=== PATIENT | male | born 1925 ===

== ENCOUNTER 2016-04-25 23:16 | Emergency (ER) | payer OTHER ==
[~2016-04-25] VITALS: Ht 182.9 cm; Wt 83.9 kg
--- NOTE | 2016-04-25 23:35 | ED CRITICAL CARE ---
History of Present Illness General Chief Complaint: Cardiopulmonary Resuscitation Stated Complaint: CPR Source: EMS Exam Limitations: clinical condition Vital Signs & Intake/Output Vital Signs & Intake/Output Vital Signs Date Time Temp Pulse Resp B/P Pulse O2 O2 Flow FiO2 Ox Delivery Rate 04/25 2328 39 ED Intake and Output 04/26 0000 04/25 1200 Intake Total 500 Output Total Balance 500 Intake, IV 500 Patient 185 lb Weight Triage Nurses Notes Reviewed? yes HPI: EMS was contacted secondary to shortness of breath that started earlier during the day. Upon EMS arrival patient sounded very wet and congested. As the patient was being brought out to the ambulance he went into V. fib arrest. Patient was defibrillated at 200 J with conversion into asystole. CPR was initiated and the patient was intubated. Patient received a total of 5 doses of epinephrine. Patient was also given 300 mg of amiodarone. After the first 2 doses of epinephrine patient transiently got pulses back for approximately 10-15 seconds before he bradyed down and 1 asystole again. There is no return of pulses after the third through fifth rounds of epinephrine. Past History Travel History Traveled to [place] past 21 day No Medical History Any Pertinent Medical History? see below for history Cardiovascular: AFIB, hypertension Blood Disorders: CLL Surgical History Surgical History: non-contributory Psychosocial History Tobacco Use: Cognitive Impairment Family History Hx Contributory? No Review of Systems Review of Systems Constitutional: Reports: see HPI. Respiratory: Reports: see HPI. Physical Exam Physical Exam General Appearance: intubated Head: atraumatic Eyes: Bilateral: other (FIXED). Neck: NO JVD Respiratory: LUNGS RHONCHOURUS WITH BVM Neurologic/Psych: UNRESPONSIVE Core Measures ACS in differential dx? Yes ASA ordered for poss ACS? CARDIAC ARREST CVA/TIA Diagnosis: No Severe Sepsis Present: No Septic Shock Present: No Progress Differential Diagnoses I considered the following diagnoses in my evaluation of the patient: [AMI, ELECTROLYTE ABNORMALITY, PE] Plan of Care: PT PRONOUCED Initial ED EKG: none Rhythm Strip: ASYSTOLE Comments: Upon arrival to the emergency department endotracheal tube placement was confirmed with breath sounds. Patient remained asystolic. CPR was continued. 1 mg of epinephrine was administered. Approximately 1 minute after administration of epinephrine patient went into a wide complex rhythm. Patient remained pulseless. A bedside echocardiogram showed no movement of his anterior wall and minimal movement of the inferior wall. The EF was less than 10%. After approximately 15 seconds patient bradyed down and went asystolic once again. Patient was pronounced at 2328. Departure Departure Disposition: Condition: Stable Clinical Impression Primary Impression: Cardiac arrest Referrals: ESTEPHANIA PORTILLO,EVELYN Nieves (PCP/Family) Departure Forms: General Discharge Information Critical Care Note Critical Care Note Critical Care Time: non-applicable Total CPR Time (mins): 12
== END 2016-04-25 23:28 | disposition expired ==
LOC: ERH 23:16
DX: I46.9 Cardiac arrest, cause unspecified (principal)
CPT/HCPCS: 1387; 94799; 96374; 99291